=== PATIENT | female | born 1950 | race Caucasian/White ===

== ENCOUNTER 2016-04-01 05:12 | Inpatient (IN) | payer MEDICARE, OTHER ==
[~2016-04-01] VITALS: Ht 160 cm; Wt 115.2 kg
[2016-04-01 06:15] LABS: Basophils # (auto) 0 uL; Basophils % (auto) 0.6 % (0.0-2.0); Eosinophils # (auto) 0.3 uL; Eosinophils % (auto) 3.6 % (0.0-7.0); Hematocrit 45.6 % (36.0-46.0); Hemoglobin 14.7 g/dL (12.2-16.2); Lymphocytes # (auto) 1.2 uL; Lymphocytes % (auto) 15.9 % (10.0-50.0); Mean Corpuscular Hemoglobin 29.9 pg (28.0-32.0); Mean Corpuscular Hgb Conc. 32.3 g/dL (32.0-36.0); Mean Corpuscular Volume 92.6 fL (80.0-100.0); Mean Platelet Volume 9.4 fL (7.4-10.4); Monocytes # (auto) 0.5 uL; Monocytes % (auto) 6.6 % (0.0-12.0); Neutrophils # (auto) 5.4 uL; Neutrophils % (auto) 73.3 % (37.0-80.0); Platelet Count (auto) 220 10^3/uL (140-450); Red Cell Distribution Width 13.4 % (11.6-16.0); White Blood Cell 7.4 10^3/uL (4.4-10.8)
[2016-04-01 06:44] LABS: Albumin 3.2 g/dL (3.4-5.0); BUN/Creatinine Ratio 22.4; Bilirubin, Total 0.3 mg/dL (0.2-1.0); Calcium 9.7 mg/dL (8.5-10.1); Magnesium 2.2 mg/dL (1.6-2.6); Potassium 3.9 mmol/L (3.5-5.1); Total Protein 7.9 g/dL (6.4-8.2)
[2016-04-01] MEDS ORDERED: GASTROGRAFIN 30 ML SOL ONE (07:03)
[2016-04-01] MEDS ORDERED: PIPERACILLIN-TAZO 4.5GM 100 ML IV ONE (09:30)
[2016-04-01] MEDS ORDERED: NALBUPHINE HCL 10 MG/1ml INJECTION IV ONE (09:45)
[2016-04-01] MEDS ORDERED: PROMETHAZINE HCL 25 MG/ML 1ML IV ONE (09:45)
[2016-04-01 10:57] LABS: Urine Bilirubin Negative (Negative); Urine Blood Negative /uL (Negative); Urine Color Yellow (Yellow); Urine Glucose Normal (Normal); Urine Ketone Negative (Negative); Urine Mucus FEW (None Seen); Urine Nitrite Negative (Negative); Urine RBC <1 /hpf (0 - 4); Urine Squamous Epithelial Cell FEW /hpf (<5); Urine Urobilinogen Normal (Negative); Urine pH 6.5 (5.0-8.0)
[2016-04-01] MEDS ORDERED: cefTRIAXone 1GM/50ML D5W 50 ML IV ONE (13:00)
[2016-04-01] MEDS ORDERED: PHENYTOIN SODIUM 100 MG CAP PO ONE (13:00)
[2016-04-01] MEDS ORDERED: LOSARTAN POTASSIUM 50 MG TAB PO ONE (13:00)
[2016-04-01] MEDS ORDERED: LORazepam 0.5 MG TAB PO PRN (13:00)
[2016-04-01] MEDS ORDERED: PANTOPRAZOLE 40 MG TAB PO ONE ×2 (13:00→13:45)
[2016-04-01] MEDS ORDERED: cloNIDine HCL 0.1 MG TAB PO PRN (13:00)
[2016-04-01] MEDS ORDERED: TEMAZEPAM 15 MG CAP PO PRN (13:15)
[2016-04-01] MEDS ORDERED: ONDANSETRON HCL 4 MG/2 ML VIAL IV PRN (13:15)
[2016-04-01] MEDS ORDERED: NITROGLYCERIN 0.4 MG SL TAB SL PRN (13:15)
[2016-04-01] MEDS ORDERED: HYDROcodone-ACET 5/325MG TAB PO PRN (13:15)
[2016-04-01] MEDS ORDERED: ACETAMINOPHEN 325 MG TAB PO PRN (13:15)
[2016-04-01] MEDS ORDERED: MORPHINE SULF INJ 2 MG/ML SYRINGE 1ML IV PRN (13:15)
[2016-04-01] MEDS ORDERED: DOCUSATE SOD 100 MG CAP PO PRN (13:15)
[2016-04-01] MEDS: SODIUM CHLOR 0.9% PF (SALINE LOCK) 10ML VIAL IV SCH ×2 (14:30→21:58)
[2016-04-01] MEDS: metroNIDAZOLE 500MG/100ML 100 ML IV SCH ×2 (14:30→21:57)
[2016-04-01 17:00] VITALS: BP 134/83
[2016-04-01] MEDS ORDERED: LORA2TAB89 PO (17:45)
[2016-04-01] MEDS ORDERED: PHEN100C70 PO (17:45)
[2016-04-01] MEDS ORDERED: RANITAB8 PO (17:45)
[2016-04-01] MEDS ORDERED: HYDR-531 PO (17:45)
[2016-04-01] MEDS ORDERED: DIP25C PO (17:45)
[2016-04-01] MEDS ORDERED: LOSA100T25 PO (17:47)
[2016-04-01] MEDS: BOOST PLUS 8 ounce PO SCH (18:03)
[2016-04-01 21:31] VITALS: BP 162/78
[2016-04-01] MEDS: FAMOTIDINE 20 MG TAB PO SCH (21:57)
[2016-04-01] MEDS: NYSTATIN-TRIAMCINOLONE TOPICAL CRE 15GM TOP SCH (21:57)
[2016-04-01] MEDS: PHENYTOIN SODIUM 100 MG CAP PO SCH (21:57)
[2016-04-01] MEDS: MORPHINE SULF INJ 2 MG/ML SYRINGE 1ML IV PRN (22:11)
[2016-04-02] MEDS: metroNIDAZOLE 500MG/100ML 100 ML IV SCH (05:15)
[2016-04-02] MEDS: SODIUM CHLOR 0.9% PF (SALINE LOCK) 10ML VIAL IV SCH ×2 (05:16→14:00)
[2016-04-02 05:24] VITALS: BP 122/77
[2016-04-02 05:33] LABS: Basophils # (auto) 0 uL; Basophils % (auto) 0.2 % (0.0-2.0); Eosinophils # (auto) 0.3 uL; Eosinophils % (auto) 3.4 % (0.0-7.0); Hematocrit 44.9 % (36.0-46.0); Hemoglobin 14.2 g/dL (12.2-16.2); Lymphocytes % (auto) 12.8 % (10.0-50.0); Mean Corpuscular Hemoglobin 29.6 pg (28.0-32.0); Mean Corpuscular Hgb Conc. 31.6 g/dL (32.0-36.0); Mean Corpuscular Volume 93.6 fL (80.0-100.0); Mean Platelet Volume 9.3 fL (7.4-10.4); Monocytes # (auto) 0.4 uL; Monocytes % (auto) 5.9 % (0.0-12.0); Neutrophils # (auto) 5.9 uL; Neutrophils % (auto) 77.7 % (37.0-80.0); Platelet Count (auto) 206 10^3/uL (140-450); Red Cell Distribution Width 14.1 % (11.6-16.0); White Blood Cell 7.5 10^3/uL (4.4-10.8)
[2016-04-02] MEDS: MORPHINE SULF INJ 2 MG/ML SYRINGE 1ML IV PRN ×3 (05:50→19:39)
[2016-04-02 07:09] LABS: Albumin 2.7 g/dL (3.4-5.0); BUN/Creatinine Ratio 18.3; Bilirubin, Total 0.3 mg/dL (0.2-1.0); Calcium 9.2 mg/dL (8.5-10.1); Total Protein 6.7 g/dL (6.4-8.2)
[2016-04-02] MEDS: BOOST PLUS 8 ounce PO SCH ×3 (08:00→18:00)
[2016-04-02 08:21] VITALS: BP 121/62
[2016-04-02] MEDS ORDERED: cefTRIAXone 1GM/50ML D5W 50 ML IV SCH (09:00)
[2016-04-02] MEDS ORDERED: HCTZ 25 MG TAB PO SCH (10:00)
[2016-04-02] MEDS ORDERED: PANTOPRAZOLE 40 MG TAB PO SCH (10:00)
[2016-04-02] MEDS ORDERED: MULTIPLE VITAMIN TAB PO SCH (10:00)
[2016-04-02] MEDS ORDERED: LOSARTAN POTASSIUM 50 MG TAB PO SCH (10:00)
[2016-04-02] MEDS: PHENYTOIN SODIUM 100 MG CAP PO SCH (10:35)
[2016-04-02] MEDS: FAMOTIDINE 20 MG TAB PO SCH (10:35)
[2016-04-02] MEDS: NYSTATIN-TRIAMCINOLONE TOPICAL CRE 15GM TOP SCH (10:37)
[2016-04-02] MEDS ORDERED: LORazepam 2MG/ML-1ML VIAL IV PRN (12:15)
[2016-04-02 13:00] VITALS: BP 122/56
[2016-04-02 17:04] VITALS: BP 113/51
[2016-04-02 17:54] VITALS: BP 113/51
== END 2016-04-02 20:50 | disposition home health service (06) | DRG 393 ==
LOC: ER 05:12 → TELE 05:13 → TELE-EAST 15:03
PROVIDERS: ADMIT Internal Medicine; ATTEND Internal Medicine
DX: K42.9 Umbilical hernia without obstruction or gangrene (principal); L89.323 Pressure ulcer of left buttock, stage 3; L89.313 Pressure ulcer of right buttock, stage 3; L89.153 Pressure ulcer of sacral region, stage 3; E44.1 Mild protein-calorie malnutrition; L03.90 Cellulitis, unspecified; N39.0 Urinary tract infection, site not specified; I45.2 Bifascicular block; G40.909 Epilepsy, unspecified, not intractable, without status epilepticus; I44.5 Left posterior fascicular block; K74.5 Biliary cirrhosis, unspecified; L89.159 Pressure ulcer of sacral region, unspecified stage; N18.9 Chronic kidney disease, unspecified; D36.10 Benign neoplasm of peripheral nerves and autonomic nervous system, unspecified; E66.9 Obesity, unspecified; B19.20 Unspecified viral hepatitis C without hepatic coma; F17.210 Nicotine dependence, cigarettes, uncomplicated; I89.0 Lymphedema, not elsewhere classified; K43.9 Ventral hernia without obstruction or gangrene; K74.60 Unspecified cirrhosis of liver; Z68.35 Body mass index [BMI] 35.0-35.9, adult; Z98.890 Other specified postprocedural states; Z79.899 Other long term (current) drug therapy; Z82.0 Family history of epilepsy and other diseases of the nervous system
CPT/HCPCS: 36415; 74176; 80053; 81001; 82150; 82962; 83690; 83735; 84484; 85025; 85049; 87086; 87088; 87186; 93306; 94761; 96365; 96367; 96375; G0434; J0696; J2405; J2543; J3490

== ENCOUNTER 2018-11-09 22:57 | Emergency (ER) | payer MEDICARE, OTHER ==
[~2018-11-09] VITALS: Ht 157.5 cm; Wt 136.1 kg
[~2018-11-09 22:57] MED LIST: ASPI81CH43 PO; ATOR10TA52 PO; DIP25C PO; HYDR-531 PO; LORA2TAB89 PO; LOSA100T25 PO; PHEN100C70 PO; RANITAB8 PO
[2018-11-10] MEDS ORDERED: ONDANSETRON HCL 4 MG/2 ML VIAL IV ONE
[2018-11-10] MEDS ORDERED: MORPHINE SULFATE 4 MG/ML SYR/VIAL IV ONE
[2018-11-10 00:01] LABS: Basophils # (auto) 0.1 uL; Basophils % (auto) 0.6 % (0.0-2.0); Eosinophils # (auto) 0.5 uL; Eosinophils % (auto) 3.9 % (0.0-7.0); Hematocrit 41.7 % (36.0-46.0); Hemoglobin 13.9 g/dL (12.2-16.2); Lymphocytes # (auto) 1.1 uL; Lymphocytes % (auto) 8.9 % (10.0-50.0); Mean Corpuscular Hemoglobin 31.8 pg (28.0-32.0); Mean Corpuscular Hgb Conc. 33.4 g/dL (32.0-36.0); Mean Corpuscular Volume 95.2 fL (80.0-100.0); Monocytes # (auto) 1.1 uL; Monocytes % (auto) 9.4 % (0.0-12.0); Neutrophils # (auto) 9.1 uL; Neutrophils % (auto) 77.2 % (37.0-80.0); Platelet Count (auto) 224 10^3/uL (140-450); Red Blood Cells 4.38 10^6/uL (4.0-5.20); Red Cell Distribution Width 17.2 % (11.8-14.3); White Blood Cell 11.9 10^3/uL (4.4-10.8)
[2018-11-10 00:19] LABS: Albumin 3.2 g/dL (3.4-5.0); BUN/Creatinine Ratio 30.1; Calcium 9.3 mg/dL (8.5-10.1); Potassium 3.8 mmol/L (3.5-5.1)
[2018-11-10 00:21] LABS: Bilirubin, Total 0.3 mg/dL (0.2-1.0); Total Protein 7.9 g/dL (6.4-8.2)
[2018-11-10 01:04] LABS: Urine Bacteria MANY /hpf (None Seen); Urine Blood Negative /uL (Negative); Urine Mucus FEW (None Seen); Urine Specific Gravity 1.026 (1.001-1.035); Urine WBC 19 /hpf (0 - 5)
[2018-11-10] MEDS ORDERED: cefTRIAXone 1GM/50ML D5W 50 ML IV ONE (08:00)
[2018-11-10 09:24] VITALS: BP 100/57
== END 2018-11-10 09:58 | disposition home or self-care (01) ==
LOC: EDBD 22:57 → ER 23:02
DX: I89.0 Lymphedema, not elsewhere classified (principal); N39.0 Urinary tract infection, site not specified; I13.0 Hypertensive heart and chronic kidney disease with heart failure and stage 1 through stage 4 chronic kidney disease, or unspecified chronic kidney disease; N18.9 Chronic kidney disease, unspecified; I50.9 Heart failure, unspecified; F17.210 Nicotine dependence, cigarettes, uncomplicated; Z98.51 Tubal ligation status; Z95.0 Presence of cardiac pacemaker; Z79.899 Other long term (current) drug therapy
CPT/HCPCS: 36415; 80053; 81001; 83605; 85025; 87040; 94761; 96365; 96375; 99283; J0696; J2270; J2405

== ENCOUNTER 2019-07-24 23:06 | Inpatient (IN) | payer MEDICARE, OTHER ==
[~2019-07-24] VITALS: Ht 162.6 cm; Wt 146.8 kg
[2019-07-25] MEDS ORDERED: levoFLOXacin 750MG 150 ML IV ONE (00:45)
[2019-07-25] MEDS ORDERED: cefTRIAXone 1GM/50ML D5W 50 ML IV ONE (00:45)
[2019-07-25] MEDS ORDERED: HYDROmorphone HCL 2 MG/ML VL IV ONE (01:00)
[2019-07-25 03:02] LABS: Basophils # (auto) 0.1 10 ^3/uL (0-0.2); Eosinophils # (auto) 0.5 10 ^3/uL (0-0.8); Hemoglobin 13.9 g/dL (12.2-16.2); Lymphocytes % (auto) 13.4 % (10.0-50.0); Monocytes # (auto) 0.6 10 ^3/uL (0-1.3)
[2019-07-25 03:04] LABS: Basophils % (auto) 1.2 % (0.0-2.0); Eosinophils % (auto) 5.9 % (0.0-7.0); Hematocrit 44.7 % (36.0-46.0); Lymphocytes # (auto) 1.2 10 ^3/uL (0.4-5.4); Mean Corpuscular Hemoglobin 27.9 pg (28.0-32.0); Mean Corpuscular Hgb Conc. 31.1 g/dL (32.0-36.0); Mean Corpuscular Volume 89.6 fL (80.0-100.0); Monocytes % (auto) 6.9 % (0.0-12.0); Neutrophils # (auto) 6.3 10 ^3/uL (1.6-8.6); Neutrophils % (auto) 72.6 % (37.0-80.0); Nucleated Red Blood Cells % 0.2 %; Platelet Count (auto) 151 10^3/uL (140-450); Red Blood Cells 4.99 10^6/uL (4.0-5.20); Red Cell Distribution Width 16.7 % (11.8-14.3); White Blood Cell 8.7 10^3/uL (4.4-10.8)
[2019-07-25 03:26] LABS: Urine Bacteria FEW /hpf (None Seen); Urine Blood TRACE /uL (Negative); Urine Specific Gravity 1.012 (1.001-1.035); Urine WBC 10 /hpf (0 - 5); Urine WBC Clumps PRESENT /hpf (None Seen)
[2019-07-25 04:01] LABS: Albumin 2.9 g/dL (3.4-5.0); Anion Gap 4 (5-15); BUN/Creatinine Ratio 25.3; Blood Urea Nitrogen 20 mg/dL (7-18); Calcium 8.3 mg/dL (8.5-10.1); Carbon Dioxide 30 mmol/L (21-32); Chloride 106 mmol/L (98-107); GFR African American 92 mL/min; GFR Non-African American 76 mL/min; Glucose 101 mg/dL (74-106); Potassium 3.7 mmol/L (3.5-5.1); Sodium 140 mmol/L (136-145)
[2019-07-25 04:06] LABS: Alanine Aminotransferase 15 U/L (13-56); Alkaline Phosphatase 155 U/L (45-117); Aspartate Aminotransferase 12 U/L (15-37); Bilirubin, Total 0.2 mg/dL (0.2-1.0); Total Protein 8.3 g/dL (6.4-8.2)
[2019-07-25] MEDS ORDERED: MORPHINE SULF INJ 2 MG/ML SYRINGE 1ML IV ONE (10:15)
[2019-07-25] MEDS ORDERED: ONDANSETRON HCL 4 MG/2 ML VIAL IV ONE (10:15)
[2019-07-25] MEDS ORDERED: PROMETHAZINE HCL 25 MG/ML 1ML IV PRN (10:45)
[2019-07-25] MEDS ORDERED: ERTAPENEM SOD INJ 1 GM in SODIUM CHL 0.9% 50 ML IV ONE (10:45)
[2019-07-25] MEDS ORDERED: HYDROcodone-ACET 5/325MG TAB PO PRN (10:45)
[2019-07-25] MEDS: LOSARTAN PO SCH (12:00)
[2019-07-25] MEDS: HCTZ PO SCH (12:00)
--- NOTE | 2019-07-25 12:18 | NUR ---
MS admit from ER ZENIA FUENTES admitted to [facility] after SBAR received. Patient oriented to Cecilia Abel, primary RN, unit, room, bed, and unit policies regarding patient care and visiting hours. Patient weighed by bedscale and encouraged to call if they need something. All questions and concerns addressed, patient verbalized understanding. No acute distress or sob noted at this time. Will continue care
[2019-07-25 12:58] VITALS: BP 102/63
[2019-07-25] MEDS ORDERED: GABA300C10 PO (13:23)
[2019-07-25] MEDS ORDERED: PHE100C PO (13:23)
[2019-07-25] MEDS ORDERED: HYDR2TAB58 PO (13:23)
[2019-07-25] MEDS ORDERED: FURO20TA3 PO (13:23)
[2019-07-25] MEDS: CLINDAMYCIN 600MG IV 50 ML IV SCH ×2 (14:03→22:01)
--- NOTE | 2019-07-25 14:20 | NUR ---
Wound care performed multiple wounds noted to sacral area, posterior thighs, left anterior thigh, abd folds. Attempted to get wound photos but patient unable to turn fully and stay turned for photos to be taken. Obtained help from multiple staff members to turn patient. This rn was then able to obtain photos after area cleansed with wound cleanser, padded dry and applied abd pads and secured with cloth tape after wound photos. Barrier cream applied to abd fold and pillow cases applied under to absorb moisture. Monica wound nurse notified of wounds and will see patient. Patient repositioned to her left side with pillows under pressure areas. Will cont care
[2019-07-25] MEDS: HYDROmorphone HCL 2 MG/ML VL IV PRN ×2 (14:58→21:00)
[2019-07-25 17:00] VITALS: BP 123/67
[2019-07-25] MEDS ORDERED: LORazepam 0.5 MG TAB PO PRN (18:00)
--- NOTE | 2019-07-25 18:13 | NUR ---
WOUND CARE NOTE: SPECIALTY BARIATRIC AIR BED ORDERED AT THIS TIME. PATIENT TO BE PLACED, PENDING DELIVERY BY [facility] MONTERO. WILL SEE PATIENT IN THE AM.
--- NOTE | 2019-07-25 19:00 | NUR ---
Patient care endorsed to Rani kirby Addendum: 07/25/19 at 1915 by Cecilia Abel RN Patient care endorsed to Anita kirby. Patient sitting up in bed in no acute distress or sob noted. Fall precs in place per protocol. Call light within reach
--- NOTE | 2019-07-25 19:00 | NUR ---
Opening Shift Note Assumed care of patient, awake and alert. No S/S of distress/SOB. Patient complains of pain in her stomach. Instructed on POC and to call for assist PRN, will continue to monitor for changes Q1hr and PRN. Patient in the lowest possible position, call light within reach.
[2019-07-25 20:00] VITALS: BP 125/74
--- NOTE | 2019-07-25 20:00 | NUR ---
Tried to turn patient, patient complains of pain upon moving. Could not assess the full buttocks/sacrum area. Noted padding on buttocks area. Lifted patients stomach, hyper pigmentation noted, zgard cream applied. Hyperpigmentation noted on lower extremities. Will continue to monitor patient. Specialty bed arrived, will transfer when help is available.
[2019-07-25 21:51] VITALS: BP 125/74
[2019-07-25] MEDS: diphenhdrAMINE HCL 25 MG CAP PO SCH (22:00)
[2019-07-25] MEDS: ATORVASTATIN 20 MG TAB PO SCH (22:00)
--- NOTE | 2019-07-25 22:00 | NUR ---
Patient refused medications Patient refused 2200 medication for Benadryl and Lipitor stating "I do not take those" and refused to take the medications. Will continue to monitor.
[2019-07-25] MEDS: FAMOTIDINE 20 MG TAB PO SCH (22:03)
--- NOTE | 2019-07-25 23:00 | NUR ---
Moved patient to specialty bed.
--- NOTE | 2019-07-25 23:30 | NUR ---
MD at bedside. new orders, will put in new orders.
[2019-07-26] MEDS: HYDROmorphone HCL 2 MG/ML VL IV PRN ×4 (04:37→21:45)
[2019-07-26 05:31] VITALS: BP 133/99
[2019-07-26] MEDS: CLINDAMYCIN 600MG IV 50 ML IV SCH ×3 (05:41→21:44)
[2019-07-26 05:45] LABS: Potassium 4.5 mmol/L (3.5-5.1)
[2019-07-26 05:50] LABS: Albumin 2.6 g/dL (3.4-5.0); BUN/Creatinine Ratio 31.1; Bilirubin, Total 0.2 mg/dL (0.2-1.0); Calcium 8.3 mg/dL (8.5-10.1); Total Protein 7.9 g/dL (6.4-8.2)
--- NOTE | 2019-07-26 06:53 | NUR ---
Closing note. Patient in the lowest possible position, no complaints of pain at this time, will endorse to day shift RN.
[2019-07-26 07:40] LABS: Basophils # (auto) 0 10 ^3/uL (0-0.2); Lymphocytes # (auto) 0.7 10 ^3/uL (0.4-5.4); Mean Corpuscular Volume 89.4 fL (80.0-100.0); Nucleated Red Blood Cells % 0.1 %
[2019-07-26 07:41] LABS: Basophils % (auto) 0.7 % (0.0-2.0); Eosinophils # (auto) 0.3 10 ^3/uL (0-0.8); Eosinophils % (auto) 5.1 % (0.0-7.0); Hematocrit 43.3 % (36.0-46.0); Hemoglobin 13.6 g/dL (12.2-16.2); Lymphocytes % (auto) 10.6 % (10.0-50.0); Mean Corpuscular Hemoglobin 28.2 pg (28.0-32.0); Mean Corpuscular Hgb Conc. 31.5 g/dL (32.0-36.0); Monocytes # (auto) 0.5 10 ^3/uL (0-1.3); Monocytes % (auto) 8.6 % (0.0-12.0); Neutrophils # (auto) 4.8 10 ^3/uL (1.6-8.6); Platelet Count (auto) 141 10^3/uL (140-450); Red Blood Cells 4.84 10^6/uL (4.0-5.20); Red Cell Distribution Width 16.6 % (11.8-14.3); White Blood Cell 6.3 10^3/uL (4.4-10.8)
--- NOTE | 2019-07-26 08:01 | NUR ---
OPENING SHIFT NOTE Assumed care of patient. PT is awake and alert. No S/S of distress/SOB. Instructed on POC and to call for assist PRN, will continue to monitor for changes Q1hr and PRN. Safety precautions in place bed is in lowest position and locked, bed rails 2x. Call light and bedside table are within reach.
[2019-07-26 09:00] VITALS: BP 111/43
[2019-07-26] MEDS: ERTAPENEM SOD INJ 1 GM in SODIUM CHL 0.9% 50 ML IV SCH (09:25)
[2019-07-26] MEDS: ENOXAPARIN SOD 40 MG/0.4 ML SYRINGE SC SCH (09:25)
[2019-07-26] MEDS: FAMOTIDINE 20 MG TAB PO SCH ×2 (09:26→21:44)
[2019-07-26] MEDS: FUROSEMIDE 20 MG/2 ML VIAL IV SCH (09:26)
[2019-07-26] MEDS: PHENYTOIN SODIUM 100 MG CAP PO SCH (09:26)
[2019-07-26] MEDS: LOSARTAN PO SCH (09:27)
[2019-07-26] MEDS: HCTZ PO SCH (09:27)
[2019-07-26] MEDS: ASPirin 81 mg TAB PO SCH (09:27)
[2019-07-26] MEDS: POTASSIUM CHLORIDE 8 MEQ TAB PO SCH ×2 (09:27→21:45)
--- NOTE | 2019-07-26 10:58 | NUR ---
Nutrition Assessment/consult Notes please see attached link fo complete assessment Est Energy needs [id number] kcals (17-20 kcal/kgBW), Est Protein needs: 98-107 gms/day (1.0-1.1 gm/kgBW). Will continue to monitor and reassess prn. Addendum: 07/26/19 at [address] Amended: Links added.
--- NOTE | 2019-07-26 11:15 | NUR ---
WOUND CARE NOTE: IN TO SEE PATIENT AT THIS TIME PER WOUND CARE CONSULT REQUEST. PATIENT WAS NOTED UPON ADMIT TO HAVE MULTIPLE SKIN INTEGRITY ISSUES. WOUND PHOTOS TAKEN AT THAT TIME FOR REFERENCE BY BEDSIDE NURSE. PATIENT ADMITTED TO [facility] WITH DIAGNOSIS OF UTI, ESBL, CELLULITIS. CURRENT ESEQUIEL SCORE IS 13. PATIENT PLACED ON AIR BED. PATIENT STATES THAT SHE HAS HAD ISSUES WITH INTERTRIGO/MASD FOR MANY YEARS. SHE IS ABLE TO SELF TURN/REPOSITION SELF, AMBULATE WITH NO ASSISTANCE BY STAFF. PATIENT NOTED TO HAVE MASD WITH SKIN EROSION TO SACRUM/BUTTOCKS SKIN. APPLIED ZGUARD/OPTIFOAM GENTLE SACRAL DRESSING TO AREA. ABDOMINAL PANNUS IS NOTED TO HAVE INTERTRIGO WITH SKIN EROSION NOTED TO RIGHT/LEFT ABD SKIN FOLD AREAS. APPLIED INTERDRY AG FABRIC TO ENTIRE ABDOMINAL PANNUS AREA. LEFT THIGH HAS PATCHY DRY SKIN NOTED THAT APPEAR POSSIBLE INTERTRIGINOUS RASH/ABRASION. APPLIED ZGUARD TO IT. PATIENT EDUCATED IN WOUND CARE AT THIS TIME. PATIENT VERBALIZED WITH UNDERSTANDING. RECOMMEND: BID/PRN APPLICATION WITH ZGUARD TO SACRUM/BUTTOCK, LEFT THIGH SKIN EROSION AREAS, COVERING UPPER MEDIAL SACRUM WITH OPTIFOAM GENTLE SACRAL DRESSING, INTERDRY AG PRN TO ABDOMINAL SKIN FOLD AREAS, SPECIALTY AIR MATTRESS, FREQUENT TURN SCHEDULE Q 2 HOURS, PRN CONDITION PERMITS (WHEN PATIENT IN BED), WITH PRESSURE REDISTRIBUTION USING PILLOWS/WEDGES, DIETARY CONSULT, CONTINUED MONITORING BY WOUND CARE TEAM. Addendum: 07/26/19 at 1644 by Danay Almonte RN Amended: Links added.
[2019-07-26 12:57] VITALS: BP 131/65
[2019-07-26 17:00] VITALS: BP 118/52
--- NOTE | 2019-07-26 17:47 | NUR ---
WOUND CARE PERFORMED TO POSTERIOR BILATERAL LOWER EXTREMITIES AND SACRUM, PER WOUND NURSE INSTRUCTIONS.
--- NOTE | 2019-07-26 19:30 | NUR ---
Opening Shift Note Assumed care of patient, awake and alert. No S/S of distress/SOB or pain. Insructed on POC and to callfor assist PRN, will continue to monitor for changes Q1hr and PRN. Fall and safety precautions in place. Call light within reach.
--- NOTE | 2019-07-26 20:00 | NUR ---
IV removal IV DC'd with clean sterile technique, catheter fully intact. Pressure dressing applied to site. Patient tolerated well. NOTE: right hand 22g removed due to infiltration
[2019-07-26] MEDS: diphenhdrAMINE HCL 25 MG CAP PO SCH (21:44)
[2019-07-26] MEDS: ATORVASTATIN 20 MG TAB PO SCH (21:45)
[2019-07-26 22:00] VITALS: BP 140/75
--- NOTE | 2019-07-26 23:00 | NUR ---
IV insertion IV access obtained, via clean sterile technique by inserting 22 gauge catheter at left wrist after first attempt. IV secured properly. No trauma to site. Patient tolerated well. NOTE: IV inserted by secondary RN IV removal IV DC'd with clean sterile technique, catheter fully intact. Pressure dressing applied to site. Patient tolerated well. NOTE: RFA 20g removed due to redness
[2019-07-27] MEDS: HYDROmorphone HCL 2 MG/ML VL IV PRN ×4 (01:45→22:58)
[2019-07-27 05:47] VITALS: BP 119/65
[2019-07-27] MEDS: CLINDAMYCIN 600MG IV 50 ML IV SCH ×3 (05:54→22:57)
[2019-07-27] MEDS: ACETAMINOPHEN 500 MG TAB PO PRN (06:59)
--- NOTE | 2019-07-27 07:50 | NUR ---
OPENING SHIFT NOTE Resumed care of patient. PT is awake and alert. No S/S of distress/SOB. Instructed on POC and to call for assist PRN, will continue to monitor for changes Q1hr and PRN. Bed is in lowest position and locked, bed rails 2x. Call light and bedside table are within reach.
[2019-07-27 09:00] VITALS: BP 140/78
[2019-07-27] MEDS: ERTAPENEM SOD INJ 1 GM in SODIUM CHL 0.9% 50 ML IV SCH (09:19)
[2019-07-27] MEDS: ENOXAPARIN SOD 40 MG/0.4 ML SYRINGE SC SCH (09:20)
[2019-07-27] MEDS: POTASSIUM CHLORIDE 8 MEQ TAB PO SCH ×2 (09:21→22:59)
[2019-07-27] MEDS: FUROSEMIDE 20 MG/2 ML VIAL IV SCH (09:21)
[2019-07-27] MEDS: FAMOTIDINE 20 MG TAB PO SCH ×2 (09:21→22:59)
[2019-07-27] MEDS: PHENYTOIN SODIUM 100 MG CAP PO SCH (09:21)
[2019-07-27] MEDS: ASPirin 81 mg TAB PO SCH (09:21)
[2019-07-27] MEDS: HCTZ PO SCH (09:22)
[2019-07-27] MEDS: LOSARTAN PO SCH (09:22)
[2019-07-27 13:00] VITALS: BP 128/75
--- NOTE | 2019-07-27 14:30 | NUR ---
assessment Patient is a 69 year old female who is alert and oriented. Per patient prior to admission patient lived home with her caregiver and functioned with assistance from her career developer and [facility] hospice. Per patient she has a hospital bed, wheelchair, fww, 02, and nebulizer for home use. Per patient she will resume hospice on discharge. Patient informed me she feels safe returning home on discharge. I will need a resumption order for hospice prior to discharge. I informed patient she has a right to speak to a social media designer regarding all care. I informed patient she has a right to participate in any and all discharge planning. Patient does not have a POA and advanced directive. I have offered patient information on POA and advanced directives. I informed the patient the advantages and benefits of having an Advanced Directive. Patient verbalized understanding and agreed to discharge plan. Addendum: 07/27/19 at 1433 by Norma PARKER Amended: Links added.
[2019-07-27 17:00] VITALS: BP 137/78
--- NOTE | 2019-07-27 17:05 | NUR ---
IV removed/IV started IV removed with clean technique from the LFA. Catheter intact. Dressing applied. Patient tolerated well, no trauma to site. 22g IV started to the left upper arm with clean technique. IV secured and IV education provided. Patient verbalized understanding. Notified Will, primary RN, of IV initiation. Will verbalized understanding. Bed returned to the lowest locked position with call light within reach.
[2019-07-27 22:00] VITALS: BP 146/72
[2019-07-27] MEDS: ATORVASTATIN 20 MG TAB PO SCH (22:00)
[2019-07-27] MEDS: diphenhdrAMINE HCL 25 MG CAP PO SCH (22:59)
--- NOTE | 2019-07-28 03:46 | NUR ---
RECEIVED REPORT FROM Pradeep BROWNING TO ASSUME CARE.
--- NOTE | 2019-07-28 04:00 | NUR ---
Refused repositioning.
[2019-07-28] MEDS: HYDROmorphone HCL 2 MG/ML VL IV PRN ×4 (04:38→20:41)
[2019-07-28 05:00] VITALS: BP 143/72
--- NOTE | 2019-07-28 05:00 | NUR ---
IV insertion IV access obtained, via clean sterile technique by inserting 22 gauge catheter at right hand after attempt by Rush Triana. IV secured properly. No trauma to site. Patient tolerated well.
--- NOTE | 2019-07-28 05:00 | NUR ---
IV removal IV DC'd in the left upper arm with clean sterile technique, catheter fully intact. Pressure dressing applied to site. Patient tolerated well. NOTE: Noted that the site is infiltrated.
[2019-07-28] MEDS: CLINDAMYCIN 600MG IV 50 ML IV SCH ×2 (05:42→14:18)
[2019-07-28] MEDS: ACETAMINOPHEN 500 MG TAB PO PRN (06:03)
[2019-07-28 09:00] VITALS: BP 119/67
[2019-07-28] MEDS: LOSARTAN PO SCH (10:00)
[2019-07-28] MEDS: HCTZ PO SCH (10:00)
[2019-07-28] MEDS: ENOXAPARIN SOD 40 MG/0.4 ML SYRINGE SC SCH (10:23)
[2019-07-28] MEDS: PHENYTOIN SODIUM 100 MG CAP PO SCH (10:23)
[2019-07-28] MEDS: FUROSEMIDE 20 MG/2 ML VIAL IV SCH (10:23)
[2019-07-28] MEDS: FAMOTIDINE 20 MG TAB PO SCH ×2 (10:23→22:00)
[2019-07-28] MEDS: ASPirin 81 mg TAB PO SCH (10:24)
[2019-07-28] MEDS: POTASSIUM CHLORIDE 8 MEQ TAB PO SCH ×2 (10:24→22:00)
[2019-07-28] MEDS: ERTAPENEM SOD INJ 1 GM in SODIUM CHL 0.9% 50 ML IV SCH (10:24)
[2019-07-28] MEDS ORDERED: LOSARTAN POTASSIUM 25 MG TAB ONE (10:30)
--- NOTE | 2019-07-28 10:58 | NUR ---
Patient positive for ESBL E. Coli in the urine. MD Marks made aware and no new orders received. Patient placed on contact iso per protocol. Cont care
[2019-07-28 13:00] VITALS: BP 133/86
[2019-07-28 17:00] VITALS: BP 152/45
--- NOTE | 2019-07-28 19:40 | NUR ---
Opening Shift Note Assumed care of patient, AAOx4. No S/S of distress/SOB. Patient C/O pain 10/ to ABD. On 3L oxygen via nasal cannula. Lau catheter patent and draining to gravity. Bed in lowest locked position, side rails up x2, call light within reach. Instructed on POC and to call for assist PRN, will continue to monitor for changes Q1hr and PRN.
--- NOTE | 2019-07-28 20:15 | NUR ---
Dr. Marks at bedside. New orders received, RBO and verified. Will carry out orders.
[2019-07-28 22:00] VITALS: BP 142/74
[2019-07-28] MEDS: ATORVASTATIN 20 MG TAB PO SCH (22:00)
[2019-07-28] MEDS: diphenhdrAMINE HCL 25 MG CAP PO SCH (22:00)
[2019-07-29] VITALS (7 sets, daily range): BP systolic 123–160; BP diastolic 53–87
[2019-07-29] MEDS: HYDROmorphone HCL 2 MG/ML VL IV PRN ×5 (01:30→22:26)
--- NOTE | 2019-07-29 08:00 | NUR ---
ASSESSMENT NOTE PT IS ALERT ORIENTED X4, RESTING IN BED COMFORTABLY, ABLE TO VERBALIS HER NEEDS, ASSISTED IN REPOSITIONING, LARGE SOFT ABDOMEN NOTED, 3-4 + EDEMA NOTED ON BOTH LOWER EXTREMITIES, WOUNDS ULCERATIONS NOTED ON BOTH LOWER EXTREMITIES RUNNING TO BOTH POSTERIOR THIGHS, PIKE CATHETER TO GRAVITY, URINE IS YELLOW, ON PAIN MANAGEMENT AT ALL TIMES FOR STOMACH CANCER, CALL LIGHT WITHIN REACH
[2019-07-29 08:54] LABS: Basophils # (auto) 0 10 ^3/uL (0-0.2); Basophils % (auto) 0.4 % (0.0-2.0); Eosinophils # (auto) 0.4 10 ^3/uL (0-0.8); Eosinophils % (auto) 5.9 % (0.0-7.0); Hematocrit 40.7 % (36.0-46.0); Hemoglobin 13.2 g/dL (12.2-16.2); Lymphocytes # (auto) 0.6 10 ^3/uL (0.4-5.4); Lymphocytes % (auto) 9.6 % (10.0-50.0); Mean Corpuscular Hemoglobin 28.3 pg (28.0-32.0); Mean Corpuscular Hgb Conc. 32.5 g/dL (32.0-36.0); Mean Corpuscular Volume 87.1 fL (80.0-100.0); Monocytes # (auto) 0.5 10 ^3/uL (0-1.3); Monocytes % (auto) 8.1 % (0.0-12.0); Neutrophils # (auto) 4.7 10 ^3/uL (1.6-8.6); Platelet Count (auto) 134 10^3/uL (140-450); Red Blood Cells 4.67 10^6/uL (4.0-5.20); Red Cell Distribution Width 15.9 % (11.8-14.3); White Blood Cell 6.2 10^3/uL (4.4-10.8)
[2019-07-29] MEDS: FUROSEMIDE 20 MG/2 ML VIAL IV SCH (08:59)
[2019-07-29] MEDS: ENOXAPARIN SOD 40 MG/0.4 ML SYRINGE SC SCH (08:59)
[2019-07-29] MEDS: FAMOTIDINE 20 MG TAB PO SCH ×2 (09:00→22:26)
[2019-07-29] MEDS: PHENYTOIN SODIUM 100 MG CAP PO SCH (09:00)
[2019-07-29] MEDS: ASPirin 81 mg TAB PO SCH (09:00)
[2019-07-29] MEDS: POTASSIUM CHLORIDE 8 MEQ TAB PO SCH ×2 (09:00→22:25)
[2019-07-29 09:05] LABS: Albumin 2.8 g/dL (3.4-5.0); Calcium 8.2 mg/dL (8.5-10.1); Potassium 3.9 mmol/L (3.5-5.1)
[2019-07-29 09:08] LABS: BUN/Creatinine Ratio 25.8; Bilirubin, Total 0.3 mg/dL (0.2-1.0); Total Protein 7.4 g/dL (6.4-8.2)
[2019-07-29] MEDS: LOSARTAN PO SCH (10:00)
[2019-07-29] MEDS: HCTZ PO SCH (10:00)
[2019-07-29] MEDS: ERTAPENEM SOD INJ 1 GM in SODIUM CHL 0.9% 50 ML IV SCH (10:57)
--- NOTE | 2019-07-29 11:00 | NUR ---
PHYSICAL THERAPY AT BED SIDE ASSISTING PT TO GET OUT OF BED TO AMBULATE BY USING FRI=ONT WHEEL WALKER, PT TOLERATED WELL
--- NOTE | 2019-07-29 15:17 | NUR ---
Nutrition Followup Notes Pt wt is 148.0 kg Pt appetite is poor aeb ave 45% PO intake over 5 meals. Pt in no distress. Will continue to closely monitor pertinent labs, PO intake and skin status prn. Will followup in 3-5 days Est Energy needs ABW98 [id number] kcals (17-20 kcal/kgBW), Est Protein needs: 98-107 gms/day (1.0-1.1 gm/kgBW). Will continue to monitor and reassess prn. LABS: ALK PHOS 154 H, ALB 2.6 L GI: Last BM noted on 07/26 per RN doc. BS: 16 mod risk, MASD. Please refer to wound assessment report for full details. PES: Problem Altered nutrition related lab values r.t current chronic medical condition aeb elev BUN mod hypoalb Problem Decreased nutrient needs r.t adiposity aeb pt`s high BMI of 54.2 kgm2 Malnutrition related to morbid BMI> or equal to 40 Malnutrition related to morbid obesity Yes Comments 1) Refer to OPD dietitian on DC 2) Consider MVI/C bid 3) Continue current plan of care
--- NOTE | 2019-07-29 18:12 | NUR ---
PT CONTINUE STABLE, COTINUE MONITORING
--- NOTE | 2019-07-29 19:25 | NUR ---
OPENING SHIFT NOTE Assumed care of patient who is A& x4. Currently on 3L NC with no s/s of distress. Reports 7/10 pain in legs at this time. Pain management options discussed. Patient is ambulatory with the use of a walker at baseline. Lau catheter in place. Draining to gravity. Collection beg is hung below the level of the bladder and tubing is free from kinks. PIV in right hand is intact and patent. Flushed with 10ml NS. Patient is on a specialty mattress and bed is in low locked position, with side rails up x2. Call light is within reach and patient encouraged t o call for assistance when needed. Will continue to monitor for changes PRN.
[2019-07-29] MEDS: diphenhdrAMINE HCL 25 MG CAP PO SCH (22:00)
[2019-07-29] MEDS: ATORVASTATIN 20 MG TAB PO SCH (22:26)
--- NOTE | 2019-07-29 23:30 | NUR ---
Patient c/o intense itching to posterior thighs and buttocks. Patient scratched area, removing dressings and causing bleeding. Patient is anxious due to the intense itching and requests to get up out of bed. Patient assisted out of bed to stand with walker. Gown and linens changed. Wounds cleansed with wound cleanser and patted dry with sterile gauze. Covered with Tegaderm. Patient assisted back into bed and positioned for comfort. Will continue to monitor for changes PRN.
[2019-07-30] MEDS: HYDROmorphone HCL 2 MG/ML VL IV PRN ×5 (02:41→22:07)
[2019-07-30 05:00] VITALS: BP 147/73
--- NOTE | 2019-07-30 07:25 | NUR ---
Opening Note Received report from inside solar sales consultant RN. Patient is awake, alert and oriented x4. No signs or symptoms of distress noted at this time. Patient is on 3L NC, respirations even and unlabored. Patient complains of generalized pain 8/10, will mediate per orders. Lau catheter in place, patent and draining. Reviewed plan of care with patient, patient verbalized understanding. Bed in low and locked position, call light within reach. Will continue to monitor Q1 hour and PRN.
[2019-07-30 09:00] VITALS: BP 144/88
[2019-07-30] MEDS: ASPirin 81 mg TAB PO SCH (09:16)
[2019-07-30] MEDS: PHENYTOIN SODIUM 100 MG CAP PO SCH (09:16)
[2019-07-30] MEDS: FAMOTIDINE 20 MG TAB PO SCH ×2 (09:16→22:06)
[2019-07-30] MEDS: FUROSEMIDE 20 MG/2 ML VIAL IV SCH (09:17)
[2019-07-30] MEDS: POTASSIUM CHLORIDE 8 MEQ TAB PO SCH ×2 (09:18→22:06)
[2019-07-30] MEDS: HCTZ PO SCH (09:18)
[2019-07-30] MEDS: LOSARTAN PO SCH (09:18)
[2019-07-30] MEDS: ENOXAPARIN SOD 40 MG/0.4 ML SYRINGE SC SCH (09:18)
[2019-07-30] MEDS: ERTAPENEM SOD INJ 1 GM in SODIUM CHL 0.9% 50 ML IV SCH (09:18)
[2019-07-30 13:00] VITALS: BP 136/67
[2019-07-30 17:00] VITALS: BP 154/77
--- NOTE | 2019-07-30 18:34 | NUR ---
Dr. Konrad Marks at bedside Discussing plan of care with patient and this RN. Patient to discharge tomorrow. New orders received for midline and home IV antibiotics. Will implement new orders. Will continue to monitor Q1 hour and PRN.
--- NOTE | 2019-07-30 19:27 | NUR ---
Closing Note Report given to night court magistrate RN. No signs or symptoms of distress noted at this time.
--- NOTE | 2019-07-30 19:30 | NUR ---
ASSUMED CARE, PT. AWAKE, REPOSITIONED PT. NO C/O PAIN, NO SOB.
[2019-07-30 22:00] VITALS: BP 146/88
[2019-07-30] MEDS: diphenhdrAMINE HCL 25 MG CAP PO SCH (22:00)
[2019-07-30] MEDS: ATORVASTATIN 20 MG TAB PO SCH (22:06)
[2019-07-31] MEDS: HYDROmorphone HCL 2 MG/ML VL IV PRN ×3 (03:26→16:10)
[2019-07-31 05:00] VITALS: BP 142/78
--- NOTE | 2019-07-31 07:20 | NUR ---
Opening Note Received report from sales representative rural power RN. Patient is awake, alert and oriented x4. No signs or symptoms of distress noted at this time. Patient is on 3L NC, respirations even and unlabored. Lau catheter in place, patent and draining. Reviewed plan of care with patient, patient verbalized understanding. Bed in low and locked position, call light within reach. Will continue to monitor Q1 hour and PRN.
--- NOTE | 2019-07-31 08:40 | NUR ---
Paged Dr. Konrad Marks Per Norma is social director patient can not resume hospice with IV antibiotics, order needs to be changed to PO antibiotics. Awaiting call back.
[2019-07-31 09:00] VITALS: BP 153/59
--- NOTE | 2019-07-31 09:30 | NUR ---
Midline Placement: Patient educated on need for midline placement. All risks and benefits explained and all questions and concerns addresses prior to procedure. 18g/10cm midline inserted via right cephalic vein using Ultrasound. Sterile technique utilized. Blood return obtained from lumen and flushed easily with NS using proper technique. Midline secured with saline lock; biodisc and occlusive dressing applied. Chel RN notified. Midline lot #[id number]
[2019-07-31] MEDS: FUROSEMIDE 20 MG/2 ML VIAL IV SCH (09:57)
[2019-07-31] MEDS: FAMOTIDINE 20 MG TAB PO SCH (09:57)
[2019-07-31] MEDS: ENOXAPARIN SOD 40 MG/0.4 ML SYRINGE SC SCH (09:58)
[2019-07-31] MEDS: PHENYTOIN SODIUM 100 MG CAP PO SCH (09:58)
[2019-07-31] MEDS: POTASSIUM CHLORIDE 8 MEQ TAB PO SCH (09:58)
[2019-07-31] MEDS: ASPirin 81 mg TAB PO SCH (09:58)
[2019-07-31] MEDS: LOSARTAN PO SCH (10:00)
[2019-07-31] MEDS: HCTZ PO SCH (10:00)
[2019-07-31] MEDS: ERTAPENEM SOD INJ 1 GM in SODIUM CHL 0.9% 50 ML IV SCH (10:02)
--- NOTE | 2019-07-31 10:07 | NUR ---
I faxed home IV ATB order/clinical information to [facility].
[2019-07-31 13:00] VITALS: BP 143/79
--- NOTE | 2019-07-31 13:46 | NUR ---
D/C Planning Per SS consult for home health IV abx with Invanz 1gm daily for 10 days. Information and choice letter was given to patient. Patient requested [facility] ). Faxed clinical information to agency. Per Na with [facility] patient has been accepted and service to start within 24hrs upon d/c day. Lean Process Deployment Consultant Freda will completed IV abx. Informed RN Summer.
--- NOTE | 2019-07-31 14:12 | NUR ---
I called [facility] [phone] and spoke with Ashley-I let her know that [facility] will be following the patient-per Ashley they will deliver between 8-10pm tonight (they will contact patient/family regarding delivery time).
--- NOTE | 2019-07-31 15:31 | NUR ---
D/C wind science and planning Summer advised me patient will need transportation home. Contact [employer] ) spoke to Marry. Advise Wendy to arrange transportation via gurney and oxygen with a 17:00 medicinal plant picker time going to home address: [address] [place] [address]. Per Wendy next availability is for 17:30 via gurney/ oxygen. Per Wendy transportation Confirmation is [id number]. Informed laboratory chemist Sam.
[2019-07-31 15:48] VITALS: BP 153/59
--- NOTE | 2019-07-31 16:49 | NUR ---
Discharge wound photos taken
--- NOTE | 2019-07-31 19:17 | NUR ---
Discharge Discharge instructions given as ordered. Encourage to follow up with PMD as instructed. All questions and concerns addressed. Patient verbalized understanding. Medication reconciliation form completed and copy given to patient. Patient transferred home with midline for IV antibiotics. Patient transported home via [employer] transportation with all personal belongings. No signs or symptoms of distress noted at this time.
== END 2019-07-31 19:17 | disposition home health service (06) | DRG 194 ==
LOC: EDBD 23:06 → ER 23:06 → OVERFLOW 23:07 → CENTRAL 07-25 12:33
PROVIDERS: ADMIT Internal Medicine; ATTEND Specialist
DX: I13.0 Hypertensive heart and chronic kidney disease with heart failure and stage 1 through stage 4 chronic kidney disease, or unspecified chronic kidney disease (principal); J96.11 Chronic respiratory failure with hypoxia; E66.01 Morbid (severe) obesity due to excess calories; J44.0 Chronic obstructive pulmonary disease with (acute) lower respiratory infection; G40.909 Epilepsy, unspecified, not intractable, without status epilepticus; N39.0 Urinary tract infection, site not specified; B96.4 Proteus (mirabilis) (morganii) as the cause of diseases classified elsewhere; K74.60 Unspecified cirrhosis of liver; B96.89 Other specified bacterial agents as the cause of diseases classified elsewhere; G89.4 Chronic pain syndrome; I89.0 Lymphedema, not elsewhere classified; K80.20 Calculus of gallbladder without cholecystitis without obstruction; Z16.12 Extended spectrum beta lactamase (ESBL) resistance; N18.9 Chronic kidney disease, unspecified; F17.210 Nicotine dependence, cigarettes, uncomplicated; B19.20 Unspecified viral hepatitis C without hepatic coma; J20.9 Acute bronchitis, unspecified; L03.119 Cellulitis of unspecified part of limb; B96.20 Unspecified Escherichia coli [E. coli] as the cause of diseases classified elsewhere; Z68.43 Body mass index [BMI] 50.0-59.9, adult; Z79.891 Long term (current) use of opiate analgesic; Z95.0 Presence of cardiac pacemaker; Z90.710 Acquired absence of both cervix and uterus; Z83.3 Family history of diabetes mellitus; Z82.49 Family history of ischemic heart disease and other diseases of the circulatory system; Z91.041 Radiographic dye allergy status; Z79.899 Other long term (current) drug therapy; Z79.82 Long term (current) use of aspirin; I50.33 Acute on chronic diastolic (congestive) heart failure; Z20.828 Contact with and (suspected) exposure to other viral communicable diseases
CPT/HCPCS: 36415; 71045; 80053; 80185; 81001; 82728; 83605; 83880; 84484; 85025; 85379; 87040; 87070; 87086; 87088; 87186; 87804; 87880; 93005; 93970; 96365; 96366; 96368; 96375; 97110; 97116; 97163; 97530; G0378; J0696; J1335; J1956; J2405; J3490

== ENCOUNTER 2020-01-21 16:25 | Inpatient (IN) | payer MEDICARE, OTHER ==
[~2020-01-21] VITALS: Ht 162.6 cm; Wt 192.0 kg
[~2020-01-21 16:25] MED LIST changes: -ATOR10TA52 PO; +FURO20TA3 PO; +GABA300C10 PO; +HYDR2TAB58 PO; -LOSA100T25 PO; +PHE100C PO; -PHEN100C70 PO; -RANITAB8 PO
[2020-01-21] MEDS ORDERED: SODIUM CHLORIDE 0.9% 1,000 ML IV ONE (17:00)
[2020-01-21] MEDS ORDERED: CLINDAMYCIN 900MG IV 50 ML IV ONE (17:00)
[2020-01-21 18:02] LABS: Basophils # (auto) 0 10 ^3/uL (0-0.2); Basophils % (auto) 0.4 % (0.0-2.0); Eosinophils # (auto) 0.2 10 ^3/uL (0-0.8); Eosinophils % (auto) 2.4 % (0.0-7.0); Hematocrit 41.7 % (36.0-46.0); Lymphocytes # (auto) 0.7 10 ^3/uL (0.4-5.4); Mean Corpuscular Hemoglobin 27.8 pg (28.0-32.0); Mean Corpuscular Hgb Conc. 31.1 g/dL (32.0-36.0); Mean Corpuscular Volume 89.1 fL (80.0-100.0); Monocytes % (auto) 11.4 % (0.0-12.0); Neutrophils % (auto) 77.8 % (37.0-80.0); Nucleated Red Blood Cells % 0.5 %; Platelet Count (auto) 177 10^3/uL (140-450); Red Blood Cells 4.67 10^6/uL (4.0-5.20); Red Cell Distribution Width 18.3 % (11.8-14.3)
[2020-01-21 18:16] LABS: Albumin 2.3 g/dL (3.4-5.0); BUN/Creatinine Ratio 21.2; Calcium 7.9 mg/dL (8.5-10.1); Magnesium 2.7 mg/dL (1.6-2.6); Potassium 4.9 mmol/L (3.5-5.1)
[2020-01-21 18:21] LABS: Bilirubin, Total 0.3 mg/dL (0.2-1.0); Total Protein 7.5 g/dL (6.4-8.2)
[2020-01-21 19:43] LABS: Urine Bacteria MANY /hpf (None Seen); Urine Blood 1+ /uL (Negative); Urine Mucus FEW (None Seen); Urine WBC 31 /hpf (0 - 5)
[2020-01-21] MEDS ORDERED: NITROGLYCERIN 0.4 MG SL TAB SL PRN (22:00)
[2020-01-21] MEDS ORDERED: ACETAMINOPHEN 325 MG TAB PO PRN (22:00)
[2020-01-21] MEDS ORDERED: ONDANSETRON HCL 4 MG/2 ML VIAL IV PRN (22:00)
[2020-01-21] MEDS ORDERED: MORPHINE SULF INJ 2 MG/ML SYRINGE 1ML IV PRN (22:00)
[2020-01-21] MEDS ORDERED: DOCUSATE SOD 100 MG CAP PO PRN (22:00)
[2020-01-21] MEDS ORDERED: HYDROcodone-ACET 10/325MG TAB PO PRN (22:00)
[2020-01-21] MEDS: CLINDAMYCIN 300MG IV 50 ML IV SCH (22:28)
[2020-01-21] MEDS: ASCORBIC ACID 500 MG TAB PO SCH (22:28)
[2020-01-21] MEDS: SODIUM CHLOR 0.9% PF (SALINE LOCK) 10ML VIAL/SYR IV SCH (22:28)
[2020-01-21] MEDS: HYDROmorphone HCL 2 MG TAB PO SCH (22:29)
[2020-01-21 23:35] VITALS: BP 105/60
[2020-01-22 04:46] VITALS: BP 113/66
[2020-01-22] MEDS: CLINDAMYCIN 300MG IV 50 ML IV SCH ×3 (05:46→23:35)
[2020-01-22] MEDS: SODIUM CHLOR 0.9% PF (SALINE LOCK) 10ML VIAL/SYR IV SCH ×3 (05:49→22:00)
[2020-01-22 06:30] LABS: Basophils # (auto) 0.1 10 ^3/uL (0-0.2); Basophils % (auto) 0.9 % (0.0-2.0); Eosinophils # (auto) 0.3 10 ^3/uL (0-0.8); Eosinophils % (auto) 3.6 % (0.0-7.0); Hematocrit 42.1 % (36.0-46.0); Hemoglobin 13.2 g/dL (12.2-16.2); Lymphocytes # (auto) 0.6 10 ^3/uL (0.4-5.4); Lymphocytes % (auto) 6.5 % (10.0-50.0); Mean Corpuscular Hemoglobin 27.7 pg (28.0-32.0); Mean Corpuscular Hgb Conc. 31.4 g/dL (32.0-36.0); Mean Corpuscular Volume 88.1 fL (80.0-100.0); Monocytes # (auto) 0.9 10 ^3/uL (0-1.3); Monocytes % (auto) 9.3 % (0.0-12.0); Neutrophils # (auto) 7.6 10 ^3/uL (1.6-8.6); Neutrophils % (auto) 79.7 % (37.0-80.0); Nucleated Red Blood Cells % 0.3 %; Platelet Count (auto) 185 10^3/uL (140-450); Red Blood Cells 4.77 10^6/uL (4.0-5.20); White Blood Cell 9.6 10^3/uL (4.4-10.8)
[2020-01-22 06:43] LABS: Potassium 4.8 mmol/L (3.5-5.1)
[2020-01-22 07:09] LABS: Albumin 2.2 g/dL (3.4-5.0); BUN/Creatinine Ratio 20.8; Bilirubin, Total 0.6 mg/dL (0.2-1.0); Calcium 8.3 mg/dL (8.5-10.1); Total Protein 7.7 g/dL (6.4-8.2)
[2020-01-22 09:00] VITALS: BP 92/66
[2020-01-22] MEDS: ZINC SULFATE 220mg CAP or TAB PO SCH (09:21)
[2020-01-22] MEDS: MULTIPLE VITAMIN TAB PO SCH (09:21)
[2020-01-22] MEDS: GABAPENTIN 300 MG CAP PO SCH (09:21)
[2020-01-22] MEDS: ASCORBIC ACID 500 MG TAB PO SCH ×2 (09:21→23:35)
[2020-01-22] MEDS: PHENYTOIN SODIUM 100 MG CAP PO SCH (09:22)
[2020-01-22] MEDS: PANTOPRAZOLE 40 MG/10 ML VIAL INJ IV SCH (09:22)
[2020-01-22] MEDS: HYDROmorphone HCL 2 MG TAB PO SCH ×2 (09:23→22:00)
[2020-01-22] MEDS: FUROSEMIDE 20 MG/2 ML VIAL IV SCH (09:23)
[2020-01-22] MEDS: ASPirin 81 mg TAB PO SCH (09:23)
[2020-01-22] MEDS ORDERED: cefTRIAXone 1GM/50ML D5W 50 ML IV ONE (12:45)
[2020-01-22 13:00] VITALS: BP 110/59
[2020-01-22 16:49] VITALS: BP 106/69
[2020-01-22 22:00] VITALS: BP 111/75
[2020-01-22] MEDS: NYSTATIN TOPICAL POWDER 15GM TOP SCH (22:00)
[2020-01-23] MEDS ORDERED: HYDROmorphone HCL 2 MG/ML VL IV PRN (01:00)
[2020-01-23 05:11] VITALS: BP 121/73
[2020-01-23] MEDS: CLINDAMYCIN 300MG IV 50 ML IV SCH ×3 (06:00→21:33)
[2020-01-23] MEDS: SODIUM CHLOR 0.9% PF (SALINE LOCK) 10ML VIAL/SYR IV SCH ×3 (06:00→21:34)
[2020-01-23 09:02] VITALS: BP 102/62
[2020-01-23] MEDS: cefTRIAXone 1GM/50ML D5W 50 ML IV SCH (09:12)
[2020-01-23] MEDS: GABAPENTIN 300 MG CAP PO SCH (09:59)
[2020-01-23] MEDS: ASCORBIC ACID 500 MG TAB PO SCH ×2 (09:59→21:33)
[2020-01-23] MEDS: ASPirin 81 mg TAB PO SCH (09:59)
[2020-01-23] MEDS: PANTOPRAZOLE 40 MG/10 ML VIAL INJ IV SCH (10:00)
[2020-01-23] MEDS: HYDROmorphone HCL 2 MG TAB PO SCH ×2 (10:00→21:32)
[2020-01-23] MEDS: ZINC SULFATE 220mg CAP or TAB PO SCH (10:00)
[2020-01-23] MEDS: PHENYTOIN SODIUM 100 MG CAP PO SCH (10:00)
[2020-01-23] MEDS: MULTIPLE VITAMIN TAB PO SCH (10:04)
[2020-01-23] MEDS: FUROSEMIDE 20 MG/2 ML VIAL IV SCH (11:20)
[2020-01-23] MEDS: NYSTATIN TOPICAL POWDER 15GM TOP SCH ×2 (11:21→21:33)
[2020-01-23 11:54] VITALS: BP 115/52
[2020-01-23 16:53] VITALS: BP 112/57
[2020-01-23 22:00] VITALS: BP 117/87
[2020-01-24 05:00] VITALS: BP 128/71
[2020-01-24] MEDS: CLINDAMYCIN 300MG IV 50 ML IV SCH ×2 (05:21→14:00)
[2020-01-24] MEDS: SODIUM CHLOR 0.9% PF (SALINE LOCK) 10ML VIAL/SYR IV SCH ×2 (05:21→13:50)
[2020-01-24 08:26] VITALS: BP 136/64
[2020-01-24] MEDS: cefTRIAXone 1GM/50ML D5W 50 ML IV SCH (09:25)
[2020-01-24] MEDS: PHENYTOIN SODIUM 100 MG CAP PO SCH (09:25)
[2020-01-24] MEDS: MULTIPLE VITAMIN TAB PO SCH (09:25)
[2020-01-24] MEDS: ZINC SULFATE 220mg CAP or TAB PO SCH (09:25)
[2020-01-24] MEDS: ASPirin 81 mg TAB PO SCH (09:25)
[2020-01-24] MEDS: GABAPENTIN 300 MG CAP PO SCH (09:26)
[2020-01-24] MEDS: HYDROmorphone HCL 2 MG TAB PO SCH (09:26)
[2020-01-24] MEDS: ASCORBIC ACID 500 MG TAB PO SCH (09:26)
[2020-01-24] MEDS: PANTOPRAZOLE 40 MG/10 ML VIAL INJ IV SCH (09:26)
[2020-01-24] MEDS: FUROSEMIDE 20 MG/2 ML VIAL IV SCH (09:27)
[2020-01-24] MEDS: NYSTATIN TOPICAL POWDER 15GM TOP SCH (09:27)
[2020-01-24] MEDS ORDERED: ALBUTEROL SULF 2.5 MG/0.5ML(0.5%) NEB SOLN NEB SCH (10:00)
[2020-01-24 11:48] VITALS: BP 142/57
[2020-01-24 13:22] VITALS: BP 107/50
== END 2020-01-24 14:30 | disposition hospice, home (50) | DRG 383 ==
LOC: ER 16:25 → TELE 16:26 → TELE-CENTR 23:35
PROVIDERS: ADMIT Nurse Practitioner Family; ATTEND Internal Medicine
DX: L03.115 Cellulitis of right lower limb (principal); B37.3 Candidiasis of vulva and vagina; K74.60 Unspecified cirrhosis of liver; I89.0 Lymphedema, not elsewhere classified; L03.116 Cellulitis of left lower limb; E66.01 Morbid (severe) obesity due to excess calories; E11.22 Type 2 diabetes mellitus with diabetic chronic kidney disease; I13.0 Hypertensive heart and chronic kidney disease with heart failure and stage 1 through stage 4 chronic kidney disease, or unspecified chronic kidney disease; I50.9 Heart failure, unspecified; L02.415 Cutaneous abscess of right lower limb; L02.416 Cutaneous abscess of left lower limb; N18.9 Chronic kidney disease, unspecified; K80.20 Calculus of gallbladder without cholecystitis without obstruction; Z51.5 Encounter for palliative care; Z82.49 Family history of ischemic heart disease and other diseases of the circulatory system; Z85.028 Personal history of other malignant neoplasm of stomach; Z90.710 Acquired absence of both cervix and uterus; Z68.45 Body mass index [BMI] 70 or greater, adult; Z91.041 Radiographic dye allergy status; Z79.899 Other long term (current) drug therapy; R06.03 Acute respiratory distress
CPT/HCPCS: 36415; 80053; 80185; 81001; 83735; 84484; 85025; 93970; 94640; 96365; C9113; G0378; J0696; J3490